=== PATIENT | male | born 1990 | race Two or more races ===

== ENCOUNTER 2020-02-11 13:27 | Emergency (ER) | payer SELFPAY ==
[~2020-02-11] VITALS: Ht 172.7 cm; Wt 86.0 kg
[2020-02-11 13:31] VITALS: BP 139/85
[2020-02-11] MEDS ORDERED: TETANUS, DIPHTHERIA, PERTUSSIS VAC/PF 0.5ML (>7YR OLD) IM ONE (14:00)
[2020-02-11] MEDS ORDERED: CEPHALEXIN 250MG CAPSULE PO ONE (14:00)
== END 2020-02-11 14:40 | disposition home or self-care (01) ==
LOC: ER 13:27
DX: L60.0 Ingrowing nail (principal); Z90.49 Acquired absence of other specified parts of digestive tract
CPT/HCPCS: 73660; 90471; 90715; 99283